=== PATIENT | female | born 1965 | race Caucasian/White ===

== ENCOUNTER 2019-06-19 18:29 | Emergency (ER) | payer OTHER ==
[2019-06-19] MEDS ORDERED: Sodium Chloride 0.9% 10 ML Syringe FLUSH PRN (18:40)
[2019-06-19] MEDS ORDERED: Sodium Chloride 0.9% 2.5 ML Syringe FLUSH PRN (18:40)
[2019-06-19] MEDS ORDERED: Sodium Chloride 0.9% 1,000 ML IV ONE (19:21)
[2019-06-19] MEDS ORDERED: Ondansetron 4 MG/2 ML SDV IVPUSH ONE (19:21)
[2019-06-19] MEDS ORDERED: Morphine 4 MG/ML Syringe IVPUSH ONE (19:22)
--- NOTE | 2019-06-19 19:27 | EDM.PDOC ---
ED HPI GENERAL MEDICAL PROBLEM - General Chief Complaint: Abdominal Pain Stated Complaint: ABDOMINAL PAIN Time Seen by Provider: 06/19/19 19:11 Source of Information: Reports: Patient History Limitations: Reports: No Limitations - History of Present Illness INITIAL COMMENTS - FREE TEXT/NARRATIVE: History of present illness: [Patient is 53-year-old female with a history of recently diagnosed periumbilical hernia presenting with abdominal pain throughout the day today. She endorses nausea, denies vomiting. States that she tried to take something to help her have a bowel movement, she does have a history of constipation as well. Denies fever, chest pain, shortness of breath, URI symptoms, known COVID- 19 exposure. Pain is aching in nature, in the periumbilical region, nonradiating. Has not had much appetite today. Pain is worsened by palpation.] Review of systems: As per history of present illness and below otherwise all systems reviewed and negative. Past medical history: As per history of present illness and as reviewed below otherwise noncontributory. Surgical history: As per history of present illness and as reviewed below otherwise noncontributory. Social history: No reported history of drug or alcohol abuse. Family history: As per history of present illness and as reviewed below otherwise noncontributory. Physical exam: General: Awake, alert, mild distress, A&O X3. HEENT: Atraumatic, normocephalic, pupils reactive, negative for conjunctival pallor or scleral icterus, mucous membranes moist, throat clear, neck supple, nontender, trachea midline. Lungs: Clear to auscultation, breath sounds equal bilaterally, chest nontender. Heart: RRR, normal S1S2, no JVD. Abdomen: Soft, nondistended, mildly diffusely tender. normoactive bowel sounds. Negative for masses or hepatosplenomegaly. Pelvis: Stable nontender. Genitourinary: Deferred. Rectal: Deferred. Extremities: Atraumatic, no edema, Neurovascular unremarkable. Neuro: Motor and sensory grossly intact throughout. Exam nonfocal. Diagnostics: [] Therapeutics: [] Impression: [] Plan: [] Definitive disposition and diagnosis as appropriate pending reevaluation and review of above. generalized Pain Score (Numeric/FACES): 8 - Related Data Allergies Allergy/AdvReac Type Severity Reaction Status Date / Time No Known Allergies Allergy Verified 06/19/19 19:22 Home Meds: Home Meds Gabapentin [Neurontin] 300 mg PO TID 01/07/18 [History] Lisinopril 10 mg PO DAILY 01/07/18 [History] Venlafaxine HCl [Venlafaxine HCl ER] 37.5 mg PO BID 01/12/18 [History] Lidocaine 5% [Lidoderm 5%] 1 patch TOP ASDIRECTED PRN 01/26/18 [History] traMADol HCl [Tramadol HCl ER] 100 mg PO BEDTIME 01/26/18 [History] Benzonatate 100 mg PO TID PRN #30 capsule 02/11/18 [Rx] traMADol [Ultram] 50 mg PO TID PRN #30 tab 02/11/18 [Rx] Past Medical History HEENT History: Reports: Other (See Below) Other HEENT History: wears glasses Cardiovascular History: Reports: Hypertension Respiratory History: Reports: None, PE Gastrointestinal History: Reports: Cholelithiasis Genitourinary History: Reports: None 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: Musculoskeletal History: Reports: Arthritis, Back Pain, Chronic Neurological History: Reports: None Psychiatric History: Reports: Depression Endocrine/Metabolic History: Reports: Other (See Below) Hematologic History: Reports: None Immunologic History: Reports: None Oncologic (Cancer) History: Reports: Breast Dermatologic History: Reports: None - Infectious Disease History Infectious Disease History: Reports: Chicken Pox - Past Surgical History Head Surgeries/Procedures: Reports: None GI Surgical History: Reports: Cholecystectomy Female Surgical History: Reports: Breast Biopsy, Tubal Ligation Musculoskeletal Surgical History: Reports: Other (See Below) Other Musculoskeletal Surgeries/Procedures:: rewlease of Plantar fascitis Oncologic Surgical History: Reports: Lumpectomy Other Oncologic Surgeries/Procedures: left breast- followed by radiation Dermatological Surgical History: Reports: None Social & Family History - Family History Family Medical History: Noncontributory Cardiac: Reports: Other (See Below) Other Cardiac Family History: on maternal side Respiratory: Reports: None - Caffeine Use Caffeine Use: Reports: Soda ED ROS GENERAL - Review of Systems Review Of Systems: Comprehensive ROS is negative, except as noted in HPI. ED EXAM, GI/ABD - Physical Exam Exam: See Below (see h and p) Course - Vital Signs Text/Narrative:: Patient is feeling better after getting some IV fluids and pain medicine. CT scan shows evidence of a fat-containing hernia but no bowel within the hernia. No other abnormality noted. No evidence for small bowel obstruction. She is a mildly elevated lactic acid, but no signs of infection otherwise. Her vital signs are stable. On reevaluation she is asymptomatic and appears comfortable. I encouraged her to follow-up with general surgery as previously instructed. At this time no indication for further work-up or admission. Return precautions also provided. Patient is agreeable with this plan, nontoxic, stable at the time of discharge. Last Recorded V/S: Last Vital Signs Temp 35.9 C L 06/19/19 21:12 Pulse 73 06/19/19 21:12 Resp 17 06/19/19 21:12 BP 150/80 H 06/19/19 21:12 Pulse Ox 100 06/19/19 21:12 - Orders/Labs/Meds Orders: Active Orders 24 hr Category Date Time Status Sodium Chloride 0.9% [Saline Flush] Med 06/19/19 18:40 Active 10 ml FLUSH ASDIRECTED PRN Sodium Chloride 0.9% [Saline Flush] Med 06/19/19 18:40 Active 2.5 ml FLUSH ASDIRECTED PRN Saline Lock Insert [OM.PC] Stat Oth 06/19/19 18:40 Ordered Medication Orders Sodium Chloride (Saline Flush) 10 ml FLUSH ASDIRECTED PRN PRN Reason: Keep Vein Open Last Admin: 06/19/19 21:06 Dose: 10 ml Sodium Chloride (Saline Flush) 2.5 ml FLUSH ASDIRECTED PRN PRN Reason: Keep Vein Open Last Admin: 06/19/19 21:06 Dose: 2.5 ml Labs: Laboratory Tests 06/19/19 06/19/19 06/19/19 Range/Units 19:21 19:21 19:21 WBC 12.02 H (4.0-11.0) K/uL RBC 4.88 (4.30-5.90) M/uL Hgb 14.6 (12.0-16.0) g/dL Hct 42.9 (36.0-46.0) % MCV 87.9 (80.0-98.0) fL MCH 29.9 (27.0-32.0) pg MCHC 34.0 (31.0-37.0) g/dL RDW Std Deviation 42.4 (28.0-62.0) fl RDW Coeff of Joel 13 (11.0-15.0) % Plt Count 218 (150-400) K/uL MPV 12.30 H (7.40-12.00) fL Neut % (Auto) 74.5 (48.0-80.0) % Lymph % (Auto) 16.6 (16.0-40.0) % Davie % (Auto) 7.5 (0.0-15.0) % Eos % (Auto) 1.2 (0.0-7.0) % Baso % (Auto) 0.2 (0.0-1.5) % Neut # (Auto) 9.0 H (1.4-5.7) K/uL Lymph # (Auto) 2.0 (0.6-2.4) K/uL Davie # (Auto) 0.9 H (0.0-0.8) K/uL Eos # (Auto) 0.2 (0.0-0.7) K/uL Baso # (Auto) 0.0 (0.0-0.1) K/uL Nucleated RBC % 0.0 /100WBC Nucleated RBCs # 0 K/uL Lactate (0.20-2.00) mmol/L Sodium 139 (136-145) mmol/L Potassium 3.6 (3.5-5.1) mmol/L Chloride 102 (98-107) mmol/L Carbon Dioxide 24.8 (21.0-32.0) mmol/L BUN 12 (7.0-18.0) mg/dL Creatinine 0.9 (0.6-1.0) mg/dL Est Cr Clr Drug Dosing 57.83 mL/min Estimated GFR (MDRD) > 60.0 ml/min Glucose 223 H (74-106) mg/dL Calcium 9.3 (8.5-10.1) mg/dL Total Bilirubin 0.4 (0.2-1.0) mg/dL AST 42 H (15-37) IU/L ALT 75 H (14-63) IU/L Alkaline Phosphatase 123 H (46-116) U/L Total Protein 8.3 H (6.4-8.2) g/dL Albumin 4.3 (3.4-5.0) g/dL Globulin 4.0 (2.6-4.0) g/dL Albumin/Globulin Ratio 1.1 (0.9-1.6) Lipase 74 (73-393) U/L HCG, Qual (NEG) Urine Color Urine Appearance Urine pH (5.0-8.0) Ur Specific Reyno (1.001-1.035) Urine Protein (NEGATIVE) mg/dL Urine Glucose (UA) (NEGATIVE) mg/dL Urine Ketones (NEGATIVE) mg/dL Urine Occult Blood (NEGATIVE) Urine Nitrite (NEGATIVE) Urine Bilirubin (NEGATIVE) Urine Urobilinogen (<2.0) EU/dL Ur Leukocyte Esterase (NEGATIVE) Urine RBC (0-2/HPF) Urine WBC (0-5/HPF) Ur Epithelial Cells (NONE-FEW) Amorphous Sediment (NEGATIVE) Urine Bacteria (NEGATIVE) Urine Mucus (NONE-MOD) 06/19/19 06/19/19 06/19/19 Range/Units 19:21 19:21 20:50 WBC (4.0-11.0) K/uL RBC (4.30-5.90) M/uL Hgb (12.0-16.0) g/dL Hct (36.0-46.0) % MCV (80.0-98.0) fL MCH (27.0-32.0) pg MCHC (31.0-37.0) g/dL RDW Std Deviation (28.0-62.0) fl RDW Coeff of Joel (11.0-15.0) % Plt Count (150-400) K/uL MPV (7.40-12.00) fL Neut % (Auto) (48.0-80.0) % Lymph % (Auto) (16.0-40.0) % Davie % (Auto) (0.0-15.0) % Eos % (Auto) (0.0-7.0) % Baso % (Auto) (0.0-1.5) % Neut # (Auto) (1.4-5.7) K/uL Lymph # (Auto) (0.6-2.4) K/uL Davie # (Auto) (0.0-0.8) K/uL Eos # (Auto) (0.0-0.7) K/uL Baso # (Auto) (0.0-0.1) K/uL Nucleated RBC % /100WBC Nucleated RBCs # K/uL Lactate 2.5 H* (0.20-2.00) mmol/L Sodium (136-145) mmol/L Potassium (3.5-5.1) mmol/L Chloride (98-107) mmol/L Carbon Dioxide (21.0-32.0) mmol/L BUN (7.0-18.0) mg/dL Creatinine (0.6-1.0) mg/dL Est Cr Clr Drug Dosing mL/min Estimated GFR (MDRD) ml/min Glucose (74-106) mg/dL Calcium (8.5-10.1) mg/dL Total Bilirubin (0.2-1.0) mg/dL AST (15-37) IU/L ALT (14-63) IU/L Alkaline Phosphatase (46-116) U/L Total Protein (6.4-8.2) g/dL Albumin (3.4-5.0) g/dL Globulin (2.6-4.0) g/dL Albumin/Globulin Ratio (0.9-1.6) Lipase (73-393) U/L HCG, Qual NEGATIVE (NEG) Urine Color YELLOW Urine Appearance CLEAR Urine pH 6.0 (5.0-8.0) Ur Specific Reyno 1.010 (1.001-1.035) Urine Protein NEGATIVE (NEGATIVE) mg/dL Urine Glucose (UA) 500 H (NEGATIVE) mg/dL Urine Ketones NEGATIVE (NEGATIVE) mg/dL Urine Occult Blood MODERATE H (NEGATIVE) Urine Nitrite NEGATIVE (NEGATIVE) Urine Bilirubin NEGATIVE (NEGATIVE) Urine Urobilinogen 0.2 (<2.0) EU/dL Ur Leukocyte Esterase NEGATIVE (NEGATIVE) Urine RBC 4-6 (0-2/HPF) Urine WBC 1-2 (0-5/HPF) Ur Epithelial Cells OCCASIONAL (NONE-FEW) Amorphous Sediment RARE (NEGATIVE) Urine Bacteria FEW (NEGATIVE) Urine Mucus RARE (NONE-MOD) Meds: Medications Generic Name Dose Route Start Last Admin Trade Name Freq PRN Reason Stop Dose Admin Sodium Chloride 10 ml 06/19/19 18:40 06/19/19 21:06 Saline Flush FLUSH 10 ml ASDIRECTED PRN Administration Keep Vein Open Sodium Chloride 2.5 ml 06/19/19 18:40 06/19/19 21:06 Saline Flush FLUSH 2.5 ml ASDIRECTED PRN Administration Keep Vein Open Discontinued Medications Generic Name Dose Route Start Last Admin Trade Name Cirilo PRN Reason Stop Dose Admin Sodium Chloride 1,000 mls @ 999 mls/hr 06/19/19 19:21 06/19/19 21:04 Normal Saline IV 06/19/19 20:21 999 mls/hr BOLUS ONE Administration Iopamidol 100 ml 06/19/19 21:02 06/19/19 21:03 Isovue-370 (76%) IVPUSH 06/19/19 21:03 100 ml ONETIME STA Administration Morphine Sulfate 4 mg 06/19/19 19:22 06/19/19 20:05 Morphine IVPUSH 06/19/19 19:23 4 mg ONETIME ONE Administration Ondansetron HCl 4 mg 06/19/19 19:21 06/19/19 20:05 Zofran IVPUSH 06/19/19 19:22 4 mg ONETIME ONE Administration Departure - Departure Time of Disposition: 21:34 Disposition: Home, Self-Care 01 Condition: Good Clinical Impression: Abdominal pain, Periumbilical hernia - Discharge Information Instructions: Hernia, Adult Referrals: Refugio Kaur MD [Primary Care Provider] - Forms: ED Department Discharge Additional Instructions: [facility] - General Surgery [address], [address] [place] [address] Follow-up with primary care doctor and surgery, take all medications as previously prescribed. Return to the ER with any new or worsening symptoms. The following information is given to patients seen in the emergency department who are being discharged to home. This information is to outline your options for follow-up care. We provide all patients seen in our emergency department with a follow-up referral. The need for follow-up, as well as the timing and circumstances, are variable depending upon the specifics of your emergency department visit. If you don't have a primary care physician on staff, we will provide you with a referral. We always advise you to contact your personal physician following an emergency department visit to inform them of the circumstance of the visit and for follow-up with them and/or the need for any referrals to a consulting specialist. The emergency department will also refer you to a specialist when appropriate. This referral assures that you have the opportunity for follow-up care with a specialist. All of these measure are taken in an effort to provide you with optimal care, which includes your follow-up. Under all circumstances we always encourage you to contact your private physician who remains a resource for coordinating your care. When calling for follow-up care, please make the office aware that this follow-up is from your recent emergency room visit. If for any reason you are refused follow-up, please contact the [facility] Emergency Department at and asked to speak to the emergency department charge nurse. Sepsis Event Note - Evaluation Sepsis Screening Result: No Definite Risk - Focused Exam Vital Signs: Vital Signs Temp Pulse Resp BP Pulse Ox 06/19/19 21:12 35.9 C L 73 17 150/80 H 100 06/19/19 19:20 36.2 C 98 20 191/118 H 97 Date Exam was Performed: 06/19/19 Time Exam was Performed: 21:30
[2019-06-19 20:14] LABS: BLOOD UREA NITROGEN,BUN 12 mg/dL (7.0-18.0); CARBON DIOXIDE,CO2 24.8 mmol/L (21.0-32.0); CHLORIDE,CL 102 mmol/L (98-107); GLUCOSE RANDOM 223 mg/dL (74-106); POTASSIUM,K 3.6 mmol/L (3.5-5.1); SODIUM,NA 139 mmol/L (136-145)
[2019-06-19] MEDS ORDERED: Iopamidol 755 Mg/ML 100 ML Bottle IVPUSH STA (21:02)
--- NOTE | 2019-06-19 21:13 | CT ---
CT abdomen and pelvis Technique: Multiple axial sections were obtained from above the dome of the diaphragm inferiorly through the pubic symphysis. Comparison: Previous CT abdomen and pelvis study of 06/02/19. Findings: Visualized lung bases show nothing acute. Fatty infiltration is seen throughout the liver. Spleen appears within normal limits. Adrenal glands show no nodule. Pancreas shows no discrete abnormality. Surgical clips are seen from prior cholecystectomy. Kidneys show symmetric contrast enhancement without hydronephrosis or mass. Aorta shows no aneurysm with mild atherosclerotic calcification. No retroperitoneal adenopathy or mesenteric abnormalities are noted. No pelvic mass or adenopathy is seen. No free fluid or inflammatory change is seen. No bowel dilatation is seen. Fat-containing hernia is identified slightly superior to the umbilicus as well as a smaller fat-containing umbilical hernia directly below this 1st hernia. There is no bowel seen to extend into these hernias. No additional abdominal wall hernia is seen. Bone window settings were reviewed which appear within normal limits for the patient's age. No acute osseous finding is seen. Impression: 1. No evidence of small bowel obstruction. No bowel is seen to extend into anterior fat-containing abdominal wall hernias as noted above. 2. Fatty infiltration within the liver. Nothing acute is appreciated. Diagnostic code #3 This report was dictated in MDT
== END 2019-06-19 22:07 | disposition home or self-care (01) ==
LOC: MW.ED 18:29
DX: K42.9 Umbilical hernia without obstruction or gangrene (principal); I10 Essential (primary) hypertension; M19.90 Unspecified osteoarthritis, unspecified site; F32.9 Major depressive disorder, single episode, unspecified; Z79.899 Other long term (current) drug therapy; Z86.711 Personal history of pulmonary embolism
CPT/HCPCS: 74177; 80053; 81001; 83605; 83690; 84703; 85025; 96374; 96375; 99284; J2270; J2405; J7030; Q9967; 99283

== ENCOUNTER 2019-07-04 07:40 | Day surgery (SDC) | payer OTHER ==
[~2019-07-04 07:40] MED LIST: Lactated Ringers 1,000 ML IV SCH; Sodium Chloride 0.9% 10 ML SDV IV PRN; Sodium Chloride 0.9% 10 ML Syringe FLUSH PRN; Sodium Chloride 0.9% 2.5 ML Syringe FLUSH PRN; ceFAZolin 2 GM in Premix Bag 1 BAG IV ONE
--- NOTE | 2019-07-04 08:25 | PCM.PREANE ---
Preanesthetic Assessment - Anesthesia/Transfusion/Family Hx Anesthesia History: Prior Anesthesia Without Reaction Family History of Anesthesia Reaction: No Transfusion History: No Prior Transfusion(s) Intubation History: Unknown - Review of Systems General: No Symptoms Pulmonary: No Symptoms Cardiovascular: No Symptoms Gastrointestinal: No Symptoms Neurological: No Symptoms Other: Reports: None - Physical Assessment Height: 5 ft 2 in Weight: 74.843 kg ASA Class: 3 Mental Status: Alert & Oriented x3 Airway Class: Mallampati = 1 Dentition: Reports: Normal Dentition Thyro-Mental Finger Breadths: 3 Mouth Opening Finger Breadths: 3 ROM/Head Extension: Full Lungs: Clear to Auscultation, Normal Respiratory Effort Cardiovascular: Regular Rate, Regular Rhythm - Allergies Allergies/Adverse Reactions: Allergies Allergy/AdvReac Type Severity Reaction Status Date / Time No Known Allergies Allergy Verified 06/29/19 11:07 - Blood Blood Available: No - Anesthesia Plan Pre-Op Medication Ordered: None - Acknowledgements Anesthesia Type Planned: General Anesthesia Pt an Appropriate Candidate for the Planned Anesthesia: Yes Alternatives and Risks of Anesthesia Discussed w Pt/Guardian: Yes Pt/Guardian Understands and Agrees with Anesthesia Plan: Yes PreAnesthesia Questionnaire HEENT History: Reports: Other (See Below) Other HEENT History: wears glasses Cardiovascular History: Reports: High Cholesterol, Hypertension Respiratory History: Reports: PE Other Respiratory History: norma PE 1 1/2 years ago after lap page Gastrointestinal History: Reports: Cholelithiasis Genitourinary History: Reports: None 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: Musculoskeletal History: Reports: Arthritis, Back Pain, Chronic Neurological History: Reports: None Psychiatric History: Reports: Depression Endocrine/Metabolic History: Reports: Diabetes, Type II, Obesity/BMI 30+ (BMI 30.2) Hematologic History: Reports: None Immunologic History: Reports: None Oncologic (Cancer) History: Reports: Breast Dermatologic History: Reports: None - Infectious Disease History Infectious Disease History: Reports: Chicken Pox - Past Surgical History Head Surgeries/Procedures: Reports: None HEENT Surgical History: Reports: None Cardiovascular Surgical History: Reports: None Respiratory Surgical History: Reports: None GI Surgical History: Reports: Cholecystectomy Female Surgical History: Reports: Breast Biopsy, Tubal Ligation Endocrine Surgical History: Reports: None Neurological Surgical History: Reports: None Musculoskeletal Surgical History: Reports: Other (See Below) Other Musculoskeletal Surgeries/Procedures:: release of Plantar fascitis Oncologic Surgical History: Reports: Lumpectomy Other Oncologic Surgeries/Procedures: left breast- followed by radiation Dermatological Surgical History: Reports: None - SUBSTANCE USE Smoking Status *Q: Never Smoker Recreational Drug Use History: No - HOME MEDS Home Medications: Home Meds Gabapentin [Neurontin] 600 mg PO TID 01/07/18 [History] Lisinopril 20 mg PO DAILY 01/07/18 [History] Venlafaxine HCl [Venlafaxine HCl ER] 37.5 mg PO BID 01/12/18 [History] Lidocaine 5% [Lidoderm 5%] 1 patch TOP ASDIRECTED PRN 01/26/18 [History] traMADol [Ultram] 50 mg PO TID PRN #30 tab 02/11/18 [Rx] Anastrozole [Arimidex] 1 mg PO DAILY 06/29/19 [History] Meloxicam 15 mg PO BEDTIME 06/29/19 [History] metFORMIN HCl [Metformin HCl] 500 mg PO DAILY 06/29/19 [History] - CURRENT (IN HOUSE) MEDS Current Meds: Current Medications Lactated Ringer's (Ringers, Lactated) 1,000 mls @ 125 mls/hr IV ASDIRECTED MARIBELL Sodium Chloride (Saline Flush) 10 ml FLUSH ASDIRECTED PRN PRN Reason: Keep Vein Open Sodium Chloride (Saline Flush) 2.5 ml FLUSH ASDIRECTED PRN PRN Reason: Keep Vein Open Sodium Chloride (Normal Saline) 10 ml IV ASDIRECTED PRN PRN Reason: IV Use Discontinued Medications Cefazolin Sodium/Dextrose 2 gm (/ Premix) 50 mls @ 100 mls/hr IV ONETIME ONE Stop: 06/28/19 12:40
[2019-07-04] MEDS ORDERED: fentaNYL 250 MCG/5 ML SDV ONE (08:32)
[2019-07-04] MEDS ORDERED: Midazolam 1 MG/ML 2 ML SDV ONE (08:32)
[2019-07-04] MEDS ORDERED: Propofol 200 MG/20 ML SDV ONE (08:32)
[2019-07-04] MEDS ORDERED: Rocuronium 100 MG/10 ML Syringe ONE (08:34)
[2019-07-04] MEDS ORDERED: Lidocaine 2% 5 ML SDV ONE (08:34)
[2019-07-04] MEDS ORDERED: Octyl 2-Cyanoacrylate 1 Tube ONE (09:36)
[2019-07-04] MEDS ORDERED: Bupivacaine 0.5% 30 ML SDV ONE (09:36)
[2019-07-04] MEDS ORDERED: Sugammadex Sodium 200 MG/2 ML VIAL ONE (09:43)
[2019-07-04] MEDS ORDERED: ceFAZolin/Dextrose,Iso-Osmotic 2 GM/50 ML Duplex Bag IV ONE (10:08)
[2019-07-04] MEDS ORDERED: Ondansetron 4 MG/2 ML SDV IVPUSH PRN (10:26)
[2019-07-04] MEDS ORDERED: ceFAZolin 1 GM Vial ONE (10:27)
[2019-07-04] MEDS ORDERED: Ketorolac 30 MG/ML SDV ONE (10:58)
[2019-07-04] MEDS ORDERED: Naloxone 0.4 MG/ML Syringe ONE (11:12)
--- NOTE | 2019-07-04 11:20 | PCM.OPNOTE ---
- General Post-Op/Procedure Note Date of Surgery/Procedure: 07/04/19 Operative Procedure(s): Incisional hernia repair Findings: 4 x 2 cm supraumbilical incisional hernia containing omentum Pre Op Diagnosis: Incisional hernia Post-Op Diagnosis: same Anesthesia Technique: General ET Tube Primary Surgeon: Suyapa Gonzales Fluid Replacement, Intraop: 1,200 EBL in mLs: 10 Condition: Good
[2019-07-04] MEDS: fentaNYL 100 MCG/2 ML SDV IVPUSH PRN ×2 (11:38→11:43)
[2019-07-04] MEDS ORDERED: Acetaminophen/oxyCODONE 325-5 MG Tab PO PRN (12:15)
[2019-07-04] MEDS ORDERED: Cyclobenzaprine 5 MG Tab PO PRN (12:16)
[2019-07-04] MEDS ORDERED: HYDROmorphone 1 MG/ML Syringe IVPUSH PRN (12:21)
[2019-07-04] MEDS ORDERED: HYDROmorphone 2 MG/ML Syringe ONE (12:27)
--- NOTE | 2019-07-04 12:42 | PCM.POSTAN ---
POST ANESTHESIA ASSESSMENT - MENTAL STATUS Mental Status: Alert, Oriented - VITAL SIGNS Vital Signs: Last Vital Signs Temp 36.8 C 07/04/19 11:18 Pulse 70 07/04/19 11:55 Resp 16 07/04/19 11:55 BP 136/78 07/04/19 11:55 Pulse Ox 96 07/04/19 11:55 - RESPIRATORY Respiratory Status: Respiratory Rate WNL, Airway Patent, O2 Saturation Stable - CARDIOVASCULAR CV Status: Pulse Rate WNL, Blood Pressure Stable - GASTROINTESTINAL GI Status: No Symptoms - PAIN Pain Score: 4 - POST OP HYDRATION Hydration Status: Adequate & Stable - OBSERVATIONS Free Text/Narrative:: No anesthesia problems.
--- NOTE | 2019-07-04 14:41 | PCM48HPAN ---
Post Anesthesia Note - EVALUATION WITHIN 48HRS OF ANESTHETIC Vital Signs in Normal Range: Yes Patient Participated in Evaluation: Yes Respiratory Function Stable: Yes Airway Patent: Yes Cardiovascular Function Stable: Yes Hydration Status Stable: Yes Pain Control Satisfactory: Yes Nausea and Vomiting Control Satisfactory: Yes Mental Status Recovered: Yes Vital Signs: Last Vital Signs Temp 36.0 C L 07/04/19 12:05 Pulse 71 07/04/19 14:00 Resp 16 07/04/19 14:00 BP 140/85 07/04/19 14:00 Pulse Ox 94 L 07/04/19 14:00 - COMMENTS/OBSERVATIONS Free Text/Narrative:: No anesthesia complications or concerns noted.
--- NOTE | 2019-07-04 22:33 | OR ---
SURGEON: SUYAPA GONZALES MD DATE OF PROCEDURE: 07/04/2019 PREOPERATIVE DIAGNOSIS: Incisional ventral hernia. POSTOPERATIVE DIAGNOSIS: Incisional ventral hernia. PROCEDURE PERFORMED: Repair of incisional hernia with mesh. PRIMARY SURGEON: Suyapa Gonzales MD ANESTHESIA: General endotracheal anesthesia. FLUIDS: 1200 mL of crystalloid. ESTIMATED BLOOD LOSS: 10 mL. FINDINGS: A 4 x 2 cm supraumbilical incisional hernia containing omentum. COMPLICATIONS: None. INDICATIONS: The patient is a 53-year-old female who presented to my clinic with a periumbilical pain. CT scan showed a supraumbilical hernia containing omentum. This appeared to be two hernias on CT scan. The patient became more symptomatic over time and the decision was made to repair this urgently. The patient and I discussed the need for mesh. The patient bathed with Hibiclens the night before the procedure. In clinic, we discussed the procedure; expected perioperative course; and risks including bleeding, infection, or damage to surrounding structures. She verbalized understanding and wishes to proceed. PROCEDURE IN DETAIL: The patient was brought into the OR and placed on the OR table in supine position. A time-out was completed verifying the patient's name, age, date of , allergies, and procedure to be performed. General endotracheal anesthesia was induced. Preoperative antibiotics were given. The abdomen was prepped and draped in usual standard fashion. I anesthetized the supraumbilical midline as well as around the umbilicus with 0.5% Marcaine plain. A 15 blade was used to make an incision along the supraumbilical midline and then carried just right and lateral to the umbilicus. Cautery was then used to dissect down to the level of subcutaneous fat. Just above the umbilicus, I noted a large hernia sac. Using Metzenbaum scissors, I dissected this free from the surrounding tissue down to the level of fascia. The hernia sac itself was much bigger than the fascial defect. Once I had dissected it free from the surrounding tissues, I grasped the top of it with hemostats and opened it with the Metzenbaum scissors. The hernia sac contained omentum, which was easily reduced back into the abdomen. The hernia sac was then transected off the healthy fascia using electrocautery making sure to carefully protect the intraabdominal contents. It was passed off the field and sent to pathology, labeled as hernia sac. I measured my fascial defect. It measured 4 cm x 2 cm in size. I swept away any intraabdominal attachments of the omentum to the surrounding fascia. I did not palpate any further hernia defects. Just right and lateral to the fascial defect, was a small band of tissue, which was cut. Likely, this was what gave the appearance of two hernias on the preoperative CT scan. A Bard Ventralex hernia patch measuring 6.5 cm in diameter was bathed in a normal saline-Ancef solution and brought into the field. I changed my gloves before handling the mesh. It was placed intra-abdominally as an underlay. I sutured this circumferentially around the healthy fascia using interrupted 0 Ethibond sutures. When I was done placing the sutures, I lifted the mesh and inspected underneath. There did not appear to be any damage or involvement of the underlying structures. The mesh was placed back into place and tied down. The wound was then irrigated with a normal saline-Ancef solution, which was suctioned out. The fascial defect was then closed over the top of the mesh with interrupted 0 Ethibond sutures. I then again irrigated the wound. I inspected it for hemostasis. Hemostasis appeared to be achieved. I injected the fascia with 0.5% Marcaine plain. I then closed the wound with multiple layers of interrupted 3-0 Vicryl sutures, bringing the subcutaneous soft tissues down into the space created by the hernia sac. I then placed subcuticular interrupted 3-0 Vicryl sutures to bring the skin together. The skin was then closed with a running 4-0 Monocryl stitch. Dermabond and sterile dressings were applied. All counts were complete and correct at the end of the case. Patient was extubated and taken to PACU. She tolerated the procedure with no acute complications. VU / HAROON /[id number] EMERSON
== END 2019-07-04 14:45 | disposition home or self-care (01) ==
LOC: MW.SDS 07:40
PROVIDERS: ATTEND Surgery
DX: K43.2 Incisional hernia without obstruction or gangrene (principal); E78.00 Pure hypercholesterolemia, unspecified; I10 Essential (primary) hypertension; E11.9 Type 2 diabetes mellitus without complications; E78.5 Hyperlipidemia, unspecified; E66.9 Obesity, unspecified; M62.08 Separation of muscle (nontraumatic), other site; F32.9 Major depressive disorder, single episode, unspecified; Z68.30 Body mass index [BMI] 30.0-30.9, adult; Z79.899 Other long term (current) drug therapy; Z79.84 Long term (current) use of oral hypoglycemic drugs
CPT/HCPCS: 49560; 49568; 82962; 88302; A9270; C1781; J0690; J1170; J1885; J2001; J2250; J2704; J3010; J3490; J7120; 00752

== ENCOUNTER 2020-05-02 13:34 | Emergency (ER) | payer MEDICARE ==
[2020-05-02] MEDS ORDERED: Sodium Chloride 0.9% 1,000 ML IV ONE (13:52)
--- NOTE | 2020-05-02 14:05 | EDM.PDOC ---
ED HPI GENERAL MEDICAL PROBLEM - General Chief Complaint: Diabetic Complaint Stated Complaint: HIGH BLOOD SUGAR Time Seen by Provider: 05/02/20 13:50 Source of Information: Reports: Patient History Limitations: Reports: No Limitations - History of Present Illness INITIAL COMMENTS - FREE TEXT/NARRATIVE: HISTORY AND PHYSICAL: History of present illness: Patient is a 54 year old female who presents to the ED with c/o elevated blood sugars. States she has a history of type II DM and has been taking Metformin 500mg BID over the past 6 years (since being diagnosed). Typically her blood sugars run 250-300, but last evening and this morning her blood sugars were 350- 400. She had 2 slices of bread and 20 oz of juice just [employer] (doesn't follow a diabetic diet). Concerned she needs better medication management as she has had a mild headache, increased thrist and increased blood sugar. Last saw her PCP about 6-8 months ago. Patient denies any fever, chills, change in vision, syncope or near syncope. Denies any chest pain, back pain, shortness of breath or cough. Denies any abdominal pain, nausea, vomiting, diarrhea, constipation or dysuria. Has not noted any blood in urine or stool. Patient has been eating and drinking appropriately. Review of systems: As per history of present illness and below otherwise all systems reviewed and negative. Past medical history: As per history of present illness and as reviewed below otherwise noncontributory. Surgical history: As per history of present illness and as reviewed below otherwise noncontributory. Social history: See social history for further information Family history: As per history of present illness and as reviewed below otherwise noncontributory. Physical exam: General: Well developed and well nourished 54 year old female. Alert and orientated x 3. Nontoxic in appearance and in no acute distress. Vital signs are stable and have been reviewed by me. Nursing notes were reviewed. HEENT: Atraumatic, normocephalic, pupils equal and reactive bilaterally, negative for conjunctival pallor or scleral icterus, mucous membranes moist, TMs normal bilaterally, throat clear, neck supple, nontender, trachea midline. No drooling or trismus noted. No meningeal signs. No hot potato voice noted. Lungs: Clear to auscultation bilaterally. No wheezes, rales, or rhonchi. Chest nontender. Normal work of breathing, no accessory muscles used. Heart: S1S2, regular rate and rhythm without overt murmur, gallops, or rubs. No JVD. No peripheral edema Abdomen: Soft, nondistended, nontender. Normoactive bowel sounds. Negative for masses or costovertebral tenderness. Skin: Intact, warm, dry. No lesions or rashes noted. Hematologic: No petechiae or purpra. Mucosa appropriate color and normal nail bed color and refill. Extremities: Atraumatic, moves all extremities per self without difficulty or deficits, negative for cords or calf pain. Neurovascular unremarkable. Neuro: Awake, alert, oriented. Cranial nerves II through XII unremarkable. Cerebellum unremarkable. Motor and sensory unremarkable throughout. Exam nonfocal. Psychiatric: Mood and affect are appropriate. Normal thought process. Answering questions appropriately. Notes: *This patient was seen and evaluated during the 2019 SARS-CoV-2 novel coronavirus pandemic period. Community viral transmission is ongoing at time of this encounter and the emergency department is operating under pandemic response procedures. Patient's physical exam is within normal limits. Did give her 10 units of insulin subcut with IV fluids. Sugar was rechecked and is below 250. After retalking with patient it does sound like she has increased sugars/carb intake which is not helping her blood sugars. We will increase her Metformin although I feel her primary care will likely add additional medication and/or discuss insulin. Encouraged her to make an appointment today for follow-up within the next few days. I have talked with the patient about today's findings, in addition to providing specific details for plan of care. Reassessment at the time of disposition demonstrates that the patient is in no acute distress. The patient is stable for discharge, counseling was provided and we discussed in great detail signs and symptoms that would prompt them to return to the Emergency Department. Medication, follow up and supportive care measures were reviewed and discussed. Voices understanding and is agreeable to plan of care. Denies any further questions or concerns at this time. Diagnostics: CBC, CMP, [employer]A [employer]: IV fluids, Insulin Prescription: Metformin Impression: Hyperglycemia Plan: 1. You were evaluated today on an emergent basis. Increase your Metformin to 1000mg twice daily until you follow up with your primary care provider. Your Hemaglobin A1C was 9.6 (previously was 6.1). This means your blood sugars are not controlled well with your current regiment. Your primary care provider may add additional medications or consider insulin (we wont start this in the ED today). Please monitor the foods you are eating, cut back on sugars and carbs. 2. You can alternate Tylenol and ibuprofen as needed for pain and fever management. 3. We encourage you to follow up with your primary care provider in the next few days for re-evaluation and further care/management. 4. If your symptoms should worsen, new symptoms develop or any of the signs and symptoms we discussed should arise please return to the emergency room or call 911 (if needed). Definitive disposition and diagnosis as appropriate pending reevaluation and review of above. Headache Pain Score (Numeric/FACES): 8 - Related Data Allergies Allergy/AdvReac Type Severity Reaction Status Date / Time No Known Allergies Allergy Verified 05/02/20 13:42 Home Meds: Home Meds Gabapentin [Neurontin] 600 mg PO TID 01/07/18 [History] Lisinopril 20 mg PO DAILY 01/07/18 [History] Venlafaxine HCl [Venlafaxine HCl ER] 37.5 mg PO BID 01/12/18 [History] Lidocaine 5% [Lidoderm 5%] 1 patch TOP ASDIRECTED PRN 01/26/18 [History] traMADol [Ultram] 50 mg PO TID PRN #30 tab 02/11/18 [Rx] Anastrozole [Arimidex] 1 mg PO DAILY 06/29/19 [History] Meloxicam 15 mg PO BEDTIME 06/29/19 [History] metFORMIN HCl [Metformin HCl] 500 mg PO DAILY 06/29/19 [History] metFORMIN HCl [Metformin HCl] 1,000 mg PO BID #60 tablet 05/02/20 [Rx] Past Medical History HEENT History: Reports: Other (See Below) Other HEENT History: wears glasses Cardiovascular History: Reports: High Cholesterol, Hypertension Respiratory History: Reports: PE Other Respiratory History: norma PE 1 1/2 years ago after lap page Gastrointestinal History: Reports: Cholelithiasis Genitourinary History: Reports: None [employer] History: Reports: Musculoskeletal History: Reports: Arthritis, Back Pain, Chronic Neurological History: Reports: None Psychiatric History: Reports: Depression Endocrine/Metabolic History: Reports: Diabetes, Type II, Obesity/BMI 30+ Hematologic History: Reports: None Immunologic History: Reports: None Oncologic (Cancer) History: Reports: Breast Dermatologic History: Reports: None - Infectious Disease History Infectious Disease History: Reports: Chicken Pox - Past Surgical History Head Surgeries/Procedures: Reports: None HEENT Surgical History: Reports: None Cardiovascular Surgical History: Reports: None Respiratory Surgical History: Reports: None GI Surgical History: Reports: Cholecystectomy Female Surgical History: Reports: Breast Biopsy, Tubal Ligation Endocrine Surgical History: Reports: None Neurological Surgical History: Reports: None Musculoskeletal Surgical History: Reports: Other (See Below) Other Musculoskeletal Surgeries/Procedures:: release of Plantar fascitis Oncologic Surgical History: Reports: Lumpectomy Other Oncologic Surgeries/Procedures: left breast- followed by radiation Dermatological Surgical History: Reports: None Social & Family History - Family History Family Medical History: No Pertinent Family History Cardiac: Reports: Other (See Below) Other Cardiac Family History: on maternal side Respiratory: Reports: None - Tobacco Use Tobacco Use Status *Q: Never Tobacco User - Caffeine Use Caffeine Use: Reports: Soda - Recreational Drug Use Recreational Drug Use: No ED ROS GENERAL - Review of Systems Review Of Systems: Comprehensive ROS is negative, except as noted in HPI. ED EXAM GENERAL NO PERIP PULSE - Physical Exam Exam: See Below (See dictation) Course - Vital Signs Last Recorded V/S: Last Vital Signs Temp 96.5 F L 05/02/20 13:43 Pulse 72 05/02/20 15:12 Resp 14 05/02/20 15:12 BP 178/89 H 05/02/20 15:12 Pulse Ox 97 05/02/20 15:12 - Orders/Labs/Meds Orders: Active Orders 24 hr Category Date Time Status Blood Glucose Check, Bedside [RC] ONETIME Care 05/02/20 13:52 Active Blood Glucose Check, Bedside [RC] ONETIME Care 05/02/20 14:18 Active Dextrose 50% in Water Med 05/02/20 14:18 Active 50 ml IV ASDIRECTED PRN Glucagon,Human Recombinant [GlucaGen] Med 05/02/20 14:18 Active 1 mg IM ASDIRECTED PRN Medication Orders Dextrose/Water (50% Dextrose In Water 50 Ml Syringe) 50 ml IV ASDIRECTED PRN PRN Reason: Hypoglycemia Glucagon (Glucagon,Human Recombinant 1 Mg Vial) 1 mg IM ASDIRECTED PRN PRN Reason: Hypoglycemia Labs: Laboratory Tests 05/02/20 05/02/2021 Range/Units 13:47 13:53 14:02 WBC 9.93 (4.0-11.0) K/uL RBC 5.23 (4.30-5.90) M/uL Hgb 15.8 (12.0-16.0) g/dL Hct 45.9 (36.0-46.0) % MCV 87.8 (80.0-98.0) fL MCH 30.2 (27.0-32.0) pg MCHC 34.4 (31.0-37.0) g/dL RDW Std Deviation 40.3 (28.0-62.0) fl RDW Coeff of Joel 13 (11.0-15.0) % Plt Count 231 (150-400) K/uL MPV 12.70 H (7.40-12.00) fL Neut % (Auto) 71.5 (48.0-80.0) % Lymph % (Auto) 21.3 (16.0-40.0) % [place] % (Auto) 4.9 (0.0-15.0) % Eos % (Auto) 1.8 (0.0-7.0) % Baso % (Auto) 0.5 (0.0-1.5) % Neut # (Auto) 7.1 H (1.4-5.7) K/uL Lymph # (Auto) 2.1 (0.6-2.4) K/uL [place] # (Auto) 0.5 (0.0-0.8) K/uL Eos # (Auto) 0.2 (0.0-0.7) K/uL Baso # (Auto) 0.1 (0.0-0.1) K/uL Nucleated RBC % 0.0 /100WBC Nucleated RBCs # 0 K/uL Sodium (136-145) mmol/L Potassium (3.5-5.1) mmol/L Chloride (98-107) mmol/L Carbon Dioxide (21.0-32.0) mmol/L BUN (7.0-18.0) mg/dL Creatinine (0.6-1.0) mg/dL Est Cr Clr Drug Dosing mL/min Estimated GFR (MDRD) ml/min Glucose (74-106) mg/dL POC Glucose 369 H (60-110) mg/dL Hemoglobin A1c (4.5 - 6.2) % Calcium (8.5-10.1) mg/dL Total Bilirubin (0.2-1.0) mg/dL AST (15-37) IU/L ALT (14-63) IU/L Alkaline Phosphatase (46-116) U/L Total Protein (6.4-8.2) g/dL Albumin (3.4-5.0) g/dL Globulin (2.6-4.0) g/dL Albumin/Globulin Ratio (0.9-1.6) Urine Color YELLOW Urine Appearance CLEAR Urine pH 5.5 (5.0-8.0) Ur Specific [place] 1.015 (1.001-1.035) Urine Protein NEGATIVE (NEGATIVE) mg/dL Urine Glucose (UA) >=1000 (NEGATIVE) mg/dL Urine Ketones NEGATIVE (NEGATIVE) mg/dL Urine Occult Blood SMALL H (NEGATIVE) Urine Nitrite NEGATIVE (NEGATIVE) Urine Bilirubin NEGATIVE (NEGATIVE) Urine Urobilinogen 0.2 (<2.0) EU/dL Ur Leukocyte Esterase NEGATIVE (NEGATIVE) Urine RBC 0-2 (0-2/HPF) Urine WBC 0-1 (0-5/HPF) Ur Epithelial Cells RARE (NONE-FEW) Urine Bacteria RARE (NEGATIVE) 05/02/20 05/02/20 05/02/20 Range/Units 14:02 14:02 14:38 WBC (4.0-11.0) K/uL RBC (4.30-5.90) M/uL Hgb (12.0-16.0) g/dL Hct (36.0-46.0) % MCV (80.0-98.0) fL MCH (27.0-32.0) pg MCHC (31.0-37.0) g/dL RDW Std Deviation (28.0-62.0) fl RDW Coeff of Joel (11.0-15.0) % Plt Count (150-400) K/uL MPV (7.40-12.00) fL Neut % (Auto) (48.0-80.0) % Lymph % (Auto) (16.0-40.0) % [place] % (Auto) (0.0-15.0) % Eos % (Auto) (0.0-7.0) % Baso % (Auto) (0.0-1.5) % Neut # (Auto) (1.4-5.7) K/uL Lymph # (Auto) (0.6-2.4) K/uL [place] # (Auto) (0.0-0.8) K/uL Eos # (Auto) (0.0-0.7) K/uL Baso # (Auto) (0.0-0.1) K/uL Nucleated RBC % /100WBC Nucleated RBCs # K/uL Sodium 133 L (136-145) mmol/L Potassium 4.0 (3.5-5.1) mmol/L Chloride 98 (98-107) mmol/L Carbon Dioxide 26.7 (21.0-32.0) mmol/L BUN 18 (7.0-18.0) mg/dL Creatinine 0.9 (0.6-1.0) mg/dL Est Cr Clr Drug Dosing 57.17 mL/min Estimated GFR (MDRD) > 60.0 ml/min Glucose 389 H (74-106) mg/dL POC Glucose 283 H (60-110) mg/dL Hemoglobin A1c 9.6 H (4.5 - 6.2) % Calcium 9.4 (8.5-10.1) mg/dL Total Bilirubin 0.3 (0.2-1.0) mg/dL AST 21 (15-37) IU/L ALT 54 (14-63) IU/L Alkaline Phosphatase 178 H (46-116) U/L Total Protein 8.3 H (6.4-8.2) g/dL Albumin 4.0 (3.4-5.0) g/dL Globulin 4.3 H (2.6-4.0) g/dL Albumin/Globulin Ratio 0.9 (0.9-1.6) Urine Color Urine Appearance Urine pH (5.0-8.0) Ur Specific [place] (1.001-1.035) Urine Protein (NEGATIVE) mg/dL Urine Glucose (UA) (NEGATIVE) mg/dL Urine Ketones (NEGATIVE) mg/dL Urine Occult Blood (NEGATIVE) Urine Nitrite (NEGATIVE) Urine Bilirubin (NEGATIVE) Urine Urobilinogen (<2.0) EU/dL Ur Leukocyte Esterase (NEGATIVE) Urine RBC (0-2/HPF) Urine WBC (0-5/HPF) Ur Epithelial Cells (NONE-FEW) Urine Bacteria (NEGATIVE) 05/02/20 Range/Units 15:16 WBC (4.0-11.0) K/uL RBC (4.30-5.90) M/uL Hgb (12.0-16.0) g/dL Hct (36.0-46.0) % MCV (80.0-98.0) fL MCH (27.0-32.0) pg MCHC (31.0-37.0) g/dL RDW Std Deviation (28.0-62.0) fl RDW Coeff of Joel (11.0-15.0) % Plt Count (150-400) K/uL MPV (7.40-12.00) fL Neut % (Auto) (48.0-80.0) % Lymph % (Auto) (16.0-40.0) % [place] % (Auto) (0.0-15.0) % Eos % (Auto) (0.0-7.0) % Baso % (Auto) (0.0-1.5) % Neut # (Auto) (1.4-5.7) K/uL Lymph # (Auto) (0.6-2.4) K/uL [place] # (Auto) (0.0-0.8) K/uL Eos # (Auto) (0.0-0.7) K/uL Baso # (Auto) (0.0-0.1) K/uL Nucleated RBC % /100WBC Nucleated RBCs # K/uL Sodium (136-145) mmol/L Potassium (3.5-5.1) mmol/L Chloride (98-107) mmol/L Carbon Dioxide (21.0-32.0) mmol/L BUN (7.0-18.0) mg/dL Creatinine (0.6-1.0) mg/dL Est Cr Clr Drug Dosing mL/min Estimated GFR (MDRD) ml/min Glucose (74-106) mg/dL POC Glucose 257 H (60-110) mg/dL Hemoglobin A1c (4.5 - 6.2) % Calcium (8.5-10.1) mg/dL Total Bilirubin (0.2-1.0) mg/dL AST (15-37) IU/L ALT (14-63) IU/L Alkaline Phosphatase (46-116) U/L Total Protein (6.4-8.2) g/dL Albumin (3.4-5.0) g/dL Globulin (2.6-4.0) g/dL Albumin/Globulin Ratio (0.9-1.6) Urine Color Urine Appearance Urine pH (5.0-8.0) Ur Specific [place] (1.001-1.035) Urine Protein (NEGATIVE) mg/dL Urine Glucose (UA) (NEGATIVE) mg/dL Urine Ketones (NEGATIVE) mg/dL Urine Occult Blood (NEGATIVE) Urine Nitrite (NEGATIVE) Urine Bilirubin (NEGATIVE) Urine Urobilinogen (<2.0) EU/dL Ur Leukocyte Esterase (NEGATIVE) Urine RBC (0-2/HPF) Urine WBC (0-5/HPF) Ur Epithelial Cells (NONE-FEW) Urine Bacteria (NEGATIVE) Meds: Medications Generic Name Dose Route Start Last Admin Trade Name Freq PRN Reason Stop Dose Admin Dextrose/Water 50 ml 05/02/20 14:18 50% Dextrose In Water 50 Ml Syringe IV ASDIRECTED PRN Hypoglycemia Glucagon 1 mg 05/02/20 14:18 Glucagon,Human Recombinant 1 Mg Vial IM ASDIRECTED PRN Hypoglycemia Discontinued Medications Generic Name Dose Route Start Last Admin Trade Name Freq PRN Reason Stop Dose Admin Sodium Chloride 1,000 mls @ 999 mls/hr 05/02/20 13:52 05/02/20 14:04 Normal Saline IV 05/02/20 14:52 999 mls/hr STAT ONE Administration Insulin Human Regular 10 unit 05/02/20 14:18 05/02/20 14:39 Insulin Regular, Human 100 Units/Ml 10 Ml Vial SUBCUT 05/02/20 14:19 10 units ONETIME ONE Administration Protocol Departure - Departure Time of Disposition: 14:56 Disposition: Home, Self-Care 01 Clinical Impression: Hyperglycemia - Discharge Information Prescriptions: metFORMIN HCl [Metformin HCl] 1,000 mg PO BID #60 tablet Instructions: Type 2 Diabetes Mellitus, Diagnosis, Adult, [id number] Referrals: Refugio Kaur MD [Primary Care Provider] - Forms: ED Department Discharge Additional Instructions: The following information is given to patients seen in the emergency department who are being discharged to home. This information is to outline your options for follow-up care. We provide all patients seen in our emergency department with a follow-up referral. The need for follow-up, as well as the timing and circumstances, are variable depending upon the specifics of your emergency department visit. If you don't have a primary care physician on staff, we will provide you with a referral. We always advise you to contact your personal physician following an emergency department visit to inform them of the circumstance of the visit and for follow-up with them and/or the need for any referrals to a consulting specialist. The emergency department will also refer you to a specialist when appropriate. This referral assures that you have the opportunity for follow-up care with a specialist. All of these measure are taken in an effort to provide you with optimal care, which includes your follow-up. Under all circumstances we always encourage you to contact your private physician who remains a resource for coordinating your care. When calling for follow-up care, please make the office aware that this follow-up is from your recent emergency room visit. If for any reason you are refused follow-up, please contact the [facility] Emergency Department at and asked to speak to the emergency department charge nurse. [facility] [address] [place] [address] [address] Thank you for choosing the [facility] emergency department in [place] for your medical needs today. It was a pleasure caring for you. Today you were seen in the emergency department for elevated blood glucose. 1. You were evaluated today on an emergent basis. Increase your Metformin to 1000mg twice daily until you follow up with your primary care provider. Your Hemaglobin A1C was 9.6 (previously was 6.1). This means your blood sugars are not controlled well with your current regiment. Your primary care provider may add additional medications or consider insulin (we wont start this in the ED today). Please monitor the foods you are eating, cut back on sugars and carbs. 2. You can alternate Tylenol and ibuprofen as needed for pain and fever management. 3. We encourage you to follow up with your primary care provider in the next few days for re-evaluation and further care/management. 4. If your symptoms should worsen, new symptoms develop or any of the signs and symptoms we discussed should arise please return to the emergency room or call 911 (if needed). Sepsis Event Note (ED) - Evaluation Sepsis Screening Result: No Definite Risk - Focused Exam Vital Signs: Vital Signs Temp Pulse Resp BP Pulse Ox 05/02/20 15:12 72 14 178/89 H 97 05/02/20 13:43 96.5 F L 99 16 171/94 H 96 - My Orders Last 24 Hours: My Active Orders 05/02/20 13:52 Blood Glucose Check, Bedside [RC] ONETIME 05/02/20 14:18 Blood Glucose Check, Bedside [RC] ONETIME Dextrose 50% in Water 50 ml IV ASDIRECTED PRN Glucagon,Human Recombinant [GlucaGen] 1 mg IM ASDIRECTED PRN - Assessment/Plan Last 24 Hours: My Active Orders 05/02/20 13:52 Blood Glucose Check, Bedside [RC] ONETIME 05/02/20 14:18 Blood Glucose Check, Bedside [RC] ONETIME Dextrose 50% in Water 50 ml IV ASDIRECTED PRN Glucagon,Human Recombinant [GlucaGen] 1 mg IM ASDIRECTED PRN
[2020-05-02] MEDS ORDERED: Insulin Regular, Human 100 Units/ML 10 ML Vial SUBCUT ONE (14:18)
[2020-05-02] MEDS ORDERED: Glucagon,Human Recombinant 1 MG Vial IM PRN (14:18)
[2020-05-02] MEDS ORDERED: 50% Dextrose in Water 50 ML Syringe IV PRN (14:18)
[2020-05-02 14:22] LABS: HEMOGLOBIN A1C 9.6 %
[2020-05-02 14:35] LABS: BLOOD UREA NITROGEN,BUN 18 mg/dL (7.0-18.0); CARBON DIOXIDE,CO2 26.7 mmol/L (21.0-32.0); CHLORIDE,CL 98 mmol/L (98-107); GLUCOSE RANDOM 389 mg/dL (74-106); SODIUM,NA 133 mmol/L (136-145)
== END 2020-05-02 15:36 | disposition home or self-care (01) ==
LOC: MW.ED 13:34
DX: E11.65 Type 2 diabetes mellitus with hyperglycemia (principal); I10 Essential (primary) hypertension; E66.9 Obesity, unspecified; Z68.29 Body mass index [BMI] 29.0-29.9, adult; Z79.84 Long term (current) use of oral hypoglycemic drugs; Z79.899 Other long term (current) drug therapy
CPT/HCPCS: 36415; 80053; 81001; 82962; 83036; 85025; 99284; J7030; J1815-GY

== ENCOUNTER 2020-08-22 06:53 | Day surgery (SDC) | payer MEDICARE, OTHER ==
[2020-08-22] MEDS ORDERED: Scopolamine 1.5 MG Transdermal Patch ONE (07:07)
[2020-08-22] MEDS ORDERED: Ondansetron 4 MG/2 ML SDV ONE (07:20)
[2020-08-22] MEDS ORDERED: Lidocaine 2% 5 ML SDV ONE (07:20)
[2020-08-22] MEDS ORDERED: Glycopyrrolate 0.2 MG/ML SDV ONE (07:20)
[2020-08-22] MEDS ORDERED: Propofol 200 MG/20 ML SDV ONE (07:20)
[2020-08-22] MEDS ORDERED: fentaNYL 100 MCG/2 ML SDV ONE (07:20)
[2020-08-22] MEDS ORDERED: Midazolam 1 MG/ML 2 ML SDV ONE (07:20)
[2020-08-22] MEDS ORDERED: Ketorolac 30 MG/ML SDV ONE (07:20)
[2020-08-22] MEDS ORDERED: Lidocaine 1% 20 ML MDV ONE (07:22)
--- NOTE | 2020-08-22 07:32 | PCM.PREANE ---
Preanesthetic Assessment - Anesthesia/Transfusion/Family Hx Anesthesia History: Prior Anesthesia Without Reaction Transfusion History: No Prior Transfusion(s) Intubation History: Unknown - Review of Systems General: No Symptoms Pulmonary: No Symptoms Cardiovascular: No Symptoms Gastrointestinal: No Symptoms Neurological: No Symptoms Other: Reports: None - Physical Assessment NPO Status Date: 08/22/20 NPO Status Time: 00:00 Vital Signs: Last Vital Signs Temp 97.5 F 08/22/20 07:13 Pulse 77 08/22/20 07:13 Resp 16 08/22/20 07:13 BP 156/68 H 08/22/20 07:13 Pulse Ox 98 08/22/20 07:13 Height: 5 ft 1 in Weight: 162 lb ASA Class: 3 Mental Status: Alert & Oriented x3 Airway Class: Mallampati = 2 Dentition: Reports: Normal Dentition Thyro-Mental Finger Breadths: 3 Mouth Opening Finger Breadths: 3 ROM/Head Extension: Full Lungs: Clear to Auscultation, Normal Respiratory Effort Cardiovascular: Regular Rate, Regular Rhythm - Lab Values: Laboratory Last Values POC Glucose 143 mg/dL (70-99) H 08/22/20 07:11 - Allergies Allergies/Adverse Reactions: Allergies Allergy/AdvReac Type Severity Reaction Status Date / Time No Known Allergies Allergy Verified 08/19/20 10:00 PreAnesthesia Questionnaire HEENT History: Reports: Other (See Below) Other HEENT History: wears glasses Cardiovascular History: Reports: Hypertension Respiratory History: Reports: PE Other Respiratory History: bilateral PE after Lap Rosa Gastrointestinal History: Reports: None Genitourinary History: Reports: None YARD ATTENDANT History: Reports: None Musculoskeletal History: Reports: Back Pain, Chronic Neurological History: Reports: None Psychiatric History: Reports: Anxiety, Depression Endocrine/Metabolic History: Reports: Diabetes, Type II, Obesity/BMI 30+ Hematologic History: Reports: None Immunologic History: Reports: None Oncologic (Cancer) History: Reports: Breast Dermatologic History: Reports: None - Infectious Disease History Infectious Disease History: Reports: Chicken Pox - Past Surgical History Head Surgeries/Procedures: Reports: None HEENT Surgical History: Reports: None Cardiovascular Surgical History: Reports: None Respiratory Surgical History: Reports: None GI Surgical History: Reports: Cholecystectomy, Hernia, Abdominal Other GI Surgeries/Procedures: Incisional Hernia repair Female Surgical History: Reports: Breast Biopsy, Tubal Ligation Other Female Surgeries/Procedures: breast Lumpectomy for cancer Endocrine Surgical History: Reports: None Neurological Surgical History: Reports: None Musculoskeletal Surgical History: Reports: Other (See Below) Other Musculoskeletal Surgeries/Procedures:: removal of bone spur right foot Oncologic Surgical History: Reports: Lumpectomy Other Oncologic Surgeries/Procedures: left breast- followed by radiation Dermatological Surgical History: Reports: None - SUBSTANCE USE Tobacco Use Status *Q: Never Tobacco User Recreational Drug Use History: No - HOME MEDS Home Medications: Home Meds Gabapentin [Neurontin] 300 mg PO TID 01/07/18 [History] Lisinopril 20 mg PO QAM 01/07/18 [History] Venlafaxine HCl [Venlafaxine HCl ER] 37.5 mg PO BID 01/12/18 [History] Lidocaine 5% [Lidoderm 5%] 1 patch TOP ASDIRECTED PRN 01/26/18 [History] Meloxicam 15 mg PO BEDTIME 06/29/19 [History] metFORMIN HCl [Metformin HCl] 1,000 mg PO BID #60 tablet 05/02/20 [Rx] Cyclobenzaprine HCl 5 mg PO TID PRN 08/19/20 [History] oxyCODONE HCl/Acetaminophen [Percocet 5-325 mg Tablet] 1 - 2 tab PO Q4H PRN 08/19/20 [History] traMADol [Ultram] 50 mg PO BEDTIME 08/19/20 [History] - CURRENT (IN HOUSE) MEDS Current Meds: Current Medications Lactated Ringer's (Ringers, Lactated) 1,000 mls @ 125 mls/hr IV ASDIRECTED [facility] Last Admin: 08/22/20 07:18 Dose: 125 mls/hr Documented by: Sodium Chloride (Sodium Chloride 0.9% 2.5 Ml Syringe) 2.5 ml FLUSH ASDIRECTED PRN PRN Reason: Keep Vein Open Sodium Chloride (Sodium Chloride 0.9% 10 Ml Sdv) 10 ml IV ASDIRECTED PRN PRN Reason: IV Use Sodium Chloride (Sodium Chloride 0.9% 10 Ml Syringe) 10 ml FLUSH ASDIRECTED PRN PRN Reason: Keep Vein Open Discontinued Medications Fentanyl (Fentanyl 100 Mcg/2 Ml Sdv) Confirm Administered Dose 100 mcg .ROUTE .STK-MED ONE Stop: 08/22/20 07:21 Glycopyrrolate (Glycopyrrolate 0.2 Mg/Ml Sdv) Confirm Administered Dose 0.2 mg .ROUTE .STK-MED ONE Stop: 08/22/20 07:21 Cefazolin Sodium/Dextrose 2 gm (/ Premix) 50 mls @ 100 mls/hr IV ONETIME ONE Stop: 08/21/20 09:25 Ketorolac Tromethamine (Ketorolac 30 Mg/Ml Sdv) Confirm Administered Dose 30 mg .ROUTE .STK-MED ONE Stop: 08/22/20 07:21 Lidocaine (Lidocaine 2% 5 Ml Sdv) Confirm Administered Dose 5 ml .ROUTE .STK-MED ONE Stop: 08/22/20 07:21 Lidocaine HCl (Lidocaine 1% 20 Ml Mdv) Confirm Administered Dose 20 ml .ROUTE .STK-MED ONE Stop: 08/22/20 07:23 Midazolam HCl (Midazolam 1 Mg/Ml 2 Ml Sdv) Confirm Administered Dose 2 mg .ROUTE .STK-MED ONE Stop: 08/22/20 07:21 Ondansetron HCl (Ondansetron 4 Mg/2 Ml Sdv) Confirm Administered Dose 4 mg .ROUTE .STK-MED ONE Stop: 08/22/20 07:21 Propofol (Propofol 200 Mg/20 Ml Sdv) Confirm Administered Dose 200 mg .ROUTE .STK-MED ONE Stop: 08/22/20 07:21 Scopolamine (Scopolamine 1.5 Mg Transdermal Patch) Confirm Administered Dose 1.5 mg .ROUTE .STK-MED ONE Stop: 08/22/20 07:08
[2020-08-22] MEDS ORDERED: Ondansetron 4 MG/2 ML SDV IVPUSH PRN (07:33)
[2020-08-22] MEDS ORDERED: Naloxone 0.4 MG/ML Syringe IVPUSH PRN (07:33)
[2020-08-22] MEDS ORDERED: Morphine 2 MG/ML SYRINGE IVPUSH PRN (07:33)
[2020-08-22] MEDS ORDERED: fentaNYL 100 MCG/2 ML SDV IVPUSH PRN (07:33)
[2020-08-22] MEDS ORDERED: Albuterol 0.083% 2.5 MG/3 ML Neb Soln NEB PRN (07:33)
[2020-08-22] MEDS ORDERED: Metoclopramide 10 MG/2 ML SDV IVPUSH PRN (07:33)
[2020-08-22] MEDS ORDERED: HYDROmorphone 2 MG/ML Syringe IVPUSH PRN (07:33)
[2020-08-22] MEDS ORDERED: ceFAZolin 1 GM Vial ONE (07:34)
[2020-08-22] MEDS ORDERED: Sodium Chloride 0.9% 20 ML ONE (07:34)
[2020-08-22] MEDS ORDERED: Octyl 2-Cyanoacrylate 1 Tube ONE (08:25)
--- NOTE | 2020-08-22 08:46 | PCM.OPNOTE ---
- General Post-Op/Procedure Note Date of Surgery/Procedure: 08/22/20 Operative Procedure(s): Excision right chest wall mass Findings: Excision of multilobulated lipoma on right chest wall measuring 5 x 3.5 x 0.6cm. No margins Pre Op Diagnosis: Lipoma of chest wall Post-Op Diagnosis: same Anesthesia Technique: General LMA, Local Primary Surgeon: Suypaa Gonzales Condition: Good
--- NOTE | 2020-08-22 09:20 | PCM.POSTAN ---
POST ANESTHESIA ASSESSMENT - MENTAL STATUS Mental Status: Alert, Oriented - VITAL SIGNS Vital Signs: Last Vital Signs Temp 97.5 F 08/22/20 08:55 Pulse 67 08/22/20 08:55 Resp 14 08/22/20 08:55 BP 147/82 H 08/22/20 08:55 Pulse Ox 96 08/22/20 08:55 - RESPIRATORY Respiratory Status: Respiratory Rate WNL, Airway Patent, O2 Saturation Stable - CARDIOVASCULAR CV Status: Pulse Rate WNL, Blood Pressure Stable - GASTROINTESTINAL GI Status: No Symptoms - POST OP HYDRATION Hydration Status: Adequate & Stable
--- NOTE | 2020-08-22 09:21 | PCM48HPAN ---
Post Anesthesia Note - EVALUATION WITHIN 48HRS OF ANESTHETIC Vital Signs in Normal Range: Yes Patient Participated in Evaluation: Yes Respiratory Function Stable: Yes Airway Patent: Yes Cardiovascular Function Stable: Yes Hydration Status Stable: Yes Pain Control Satisfactory: Yes Nausea and Vomiting Control Satisfactory: Yes Mental Status Recovered: Yes Vital Signs: Last Vital Signs Temp 97.5 F 08/22/20 08:55 Pulse 67 08/22/20 08:55 Resp 14 08/22/20 08:55 BP 147/82 H 08/22/20 08:55 Pulse Ox 96 08/22/20 08:55
--- NOTE | 2020-08-22 14:50 | OR ---
SURGEON: SUYAPA GONZALES MD DATE OF PROCEDURE: 08/22/2020 PREOPERATIVE DIAGNOSIS: Right chest wall lipoma. POSTOPERATIVE DIAGNOSIS: Right chest wall lipoma. PROCEDURE PERFORMED: Excision of right chest wall lipoma. PRIMARY SURGEON: Suyapa Gonzales MD ANESTHESIA: General LMA, local. FLUIDS: See Anesthesia record. ESTIMATED BLOOD LOSS: 2 mL. FINDINGS: 5 x 3.5 x 0.6 cm multilobulated lipoma. COMPLICATIONS: None. INDICATIONS: The patient is a 55-year-old female who presented to my clinic with complaints of a slowly enlarging mass along her right chest wall/right upper quadrant. On physical exam, the patient had a subcutaneous mass consistent with that of a lipoma. I explained the need for an excision. We discussed the procedure, expected perioperative course, and the risks. She verbalized understanding and wishes to proceed. PROCEDURE IN DETAIL: The patient was brought in to the OR and placed on the OR table in supine position. A time-out was completed verifying the patient's name, age, date of , allergies, and procedure to be performed. General LMA anesthesia was induced. The patient was then placed in a left lateral decubitus position, taking care to appropriately pad and secure the patient to the table. The right chest wall and abdomen were then prepped and draped in usual standard fashion. I anesthetized the area overlying the mass with 0.5% Marcaine plain. A 15-blade was used to make an incision over the top of this mass along the skin lines. The incision measured 5.5 cm. Using electrocautery, I dissected down to the mass. I encountered a multilobulated encapsulated structure consistent with that of a lipoma. Using blunt dissection and electrocautery, I dissected it free from the surrounding normal-appearing subcutaneous fat. Once the mass was removed from the surrounding structures, it was placed on the back table. It was measured. It measured 5 cm x 3.5 cm x 0.6 cm in size. It was sent to Pathology, labeled as right chest wall/abdomen mass. Electrocautery was used to achieve hemostasis within the wound bed. The wound bed was irrigated. It was then closed with interrupted layers of 3-0 Vicryl sutures. In the superficial fat layer, I used a running 3-0 Vicryl stitch. To close the skin, I used a running for 4-0 Monocryl suture. Dermabond and sterile dressings were applied. The patient tolerated the procedure well and was transferred to the PACU in stable condition. All counts were complete and correct at the end of the case. VU PATIÑO /[id number]
== END 2020-08-22 10:05 | disposition home or self-care (01) ==
LOC: MW.SDS 06:53
PROVIDERS: ATTEND Surgery
DX: D17.1 Benign lipomatous neoplasm of skin and subcutaneous tissue of trunk (principal); E78.5 Hyperlipidemia, unspecified; I10 Essential (primary) hypertension; E11.9 Type 2 diabetes mellitus without complications; E66.9 Obesity, unspecified; Z68.30 Body mass index [BMI] 30.0-30.9, adult; Z79.84 Long term (current) use of oral hypoglycemic drugs; Z79.899 Other long term (current) drug therapy; Z98.890 Other specified postprocedural states
CPT/HCPCS: 11406; 82947; 88304; A9270; J0690; J1885; J2250; J2370; J2704; J3490; J7120; 00400; J2405; J3010

== ENCOUNTER 2020-09-28 11:33 | Emergency (ER) | payer MEDICARE, OTHER ==
[2020-09-28] MEDS ORDERED: Sodium Chloride 0.9% 1,000 ML IV ONE (11:48)
[2020-09-28] MEDS ORDERED: Ondansetron 4 MG/2 ML SDV IVPUSH ONE (11:52)
--- NOTE | 2020-09-28 11:55 | PCM.EKG ---
#1 Interpretation Time: 11:55 EKG Interpretation Comments: 65, normal sinus rhythm, nonspecific ST/T findings
[2020-09-28] MEDS: Labetalol 100 MG/20 ML MDV IVPUSH ONE ×2 (12:16→13:04)
[2020-09-28 12:34] LABS: BLOOD UREA NITROGEN,BUN 17 mg/dL (7.0-18.0); CARBON DIOXIDE,CO2 27.1 mmol/L (21.0-32.0); CHLORIDE,CL 100 mmol/L (98-107); GLUCOSE RANDOM 157 mg/dL (74-106); POTASSIUM,K 3.3 mmol/L (3.5-5.1); SODIUM,NA 138 mmol/L (136-145)
--- NOTE | 2020-09-28 12:41 | CR ---
INDICATION: Dizzy TECHNIQUE: Two view chest. FINDINGS: The lungs are clear. The heart, mediastinum and pulmonary vessels are of normal size. There is no evidence of pleural disease. Left basilar atelectasis. IMPRESSION: Negative chest. Dictated by Rylie Parker MD @ 09/28/2020 12:40:[address] Rylie Parker @ Sep 28 2020 12:40PM
--- NOTE | 2020-09-28 12:44 | CT ---
Indication: Dizzy Technique: Noncontrast head CT Comparison: No comparison Findings: Axial noncontrast images demonstrates no acute intracranial hemorrhage or mass. No midline shift. No abnormal extra-axial air or fluid collections are seen. Paranasal sinuses mastoid air cells skull and scalp appear unremarkable. Impression: No acute intracranial hemorrhage or mass. Please note that all CT scans at this facility use dose modulation, iterative reconstruction, and/or weight-based dosing when appropriate to reduce radiation dose to as low as reasonably achievable. Dictated by Rylie Parker MD @ 09/28/2020 12:42:[address] Rylie Parker @ Sep 28 2020 12:42PM
[2020-09-28] MEDS ORDERED: Iopamidol 755 MG/ML 500 ML Multipack Bottle IVPUSH ONE (13:53)
--- NOTE | 2020-09-28 14:07 | CT ---
DATE: 09/28/2020 CLINICAL HISTORY: Patient with severe headache and neck pain. TECHNIQUE: Standard helical CT image acquisition through the head and neck was performed after intravenous contrast bolus enhancement. Multiplanar reconstructed images were performed and interpreted. COMPARISON: CT same day. FINDINGS: The origins of the great vessels from the aortic arch are patent. The origin of the right vertebral artery is patent. The origin of the left vertebral artery is patent. The common carotid arteries are patent There is no stenosis at the origin of the right internal carotid artery. There is no stenosis at the origin of the left internal carotid artery. The rest of the cervical segments of the internal carotid arteries are patent up to their intracranial segments. The intracranial segments of the internal carotid arteries are patent. The vertebral arteries are codominant. The cervical segments of the vertebral arteries are patent. The intracranial segments of the vertebral arteries are patent. The middle cerebral arteries are normal without aneurysm or proximal occlusion identified. The anterior cerebral arteries are normal without aneurysm or proximal occlusion identified. The anterior communicating artery is well visualized and appears normal. The basilar artery is normal without aneurysm or occlusion. The posterior cerebral arteries are normal without aneurysm or proximal occlusion. There is normal opacification of major intracranial venous structures. The visualized lung apices are unremarkable The thyroid gland is unremarkable. The soft tissues of the neck are unremarkable. There are degenerative changes in the cervical spine. IMPRESSION: Normal CT angiogram of the head and neck. Please note that all CT scans at this facility use dose modulation, iterative reconstruction, and/or weight-based dosing when appropriate to reduce radiation dose to as low as reasonably achievable. Dictated by Otis Miller MD @ 09/28/2020 3:24:[address] Otis Miller @ Sep 28 2020 3:24PM
--- NOTE | 2020-09-28 14:09 | CT ---
DATE: 09/28/2020 CLINICAL HISTORY: Patient with severe headache and neck pain. TECHNIQUE: Standard helical CT image acquisition through the head and neck was performed after intravenous contrast bolus enhancement. Multiplanar reconstructed images were performed and interpreted. COMPARISON: CT same day. FINDINGS: The origins of the great vessels from the aortic arch are patent. The origin of the right vertebral artery is patent. The origin of the left vertebral artery is patent. The common carotid arteries are patent There is no stenosis at the origin of the right internal carotid artery. There is no stenosis at the origin of the left internal carotid artery. The rest of the cervical segments of the internal carotid arteries are patent up to their intracranial segments. The intracranial segments of the internal carotid arteries are patent. The vertebral arteries are codominant. The cervical segments of the vertebral arteries are patent. The intracranial segments of the vertebral arteries are patent. The middle cerebral arteries are normal without aneurysm or proximal occlusion identified. The anterior cerebral arteries are normal without aneurysm or proximal occlusion identified. The anterior communicating artery is well visualized and appears normal. The basilar artery is normal without aneurysm or occlusion. The posterior cerebral arteries are normal without aneurysm or proximal occlusion. There is normal opacification of major intracranial venous structures. The visualized lung apices are unremarkable The thyroid gland demonstrates an 11mm hypodense nodule in its left lobe. The soft tissues of the neck are unremarkable. There are degenerative changes in the cervical spine. IMPRESSION: 1. Normal CT angiogram of the head and neck. 2. 11mm hypodense left thyroid nodule. This could be better assessed with ultrasound. Please note that all CT scans at this facility use dose modulation, iterative reconstruction, and/or weight-based dosing when appropriate to reduce radiation dose to as low as reasonably achievable. Dictated by Otis Miller MD @ 09/28/2020 3:26:[address] Otis Miller @ Sep 28 2020 3:26PM
[2020-09-28] MEDS ORDERED: Labetalol 100 MG/20 ML MDV IVPUSH ONE (14:30)
--- NOTE | 2020-09-28 15:08 | EDM.PDOC ---
ED HPI GENERAL MEDICAL PROBLEM - General Chief Complaint: Headache Stated Complaint: HIGH BP HIGH BLOOD SUGAR Time Seen by Provider: 09/28/20 11:36 Source of Information: Reports: Patient History Limitations: Reports: No Limitations - History of Present Illness INITIAL COMMENTS - FREE TEXT/NARRATIVE: HISTORY AND PHYSICAL: History of present illness: Patient is a 55-year-old female, with a history of migraine disorder, hypertension, type 2 diabetes, who presents emergency room today with concern of headache that she thinks is related to her blood pressure. Patient states that she has had to go to the hospital a few times with concern of her blood pressure causing headaches in the past. Patient states today that her headache is worse than it has ever been and states that it was sudden onset when she woke up. Patient states she checked her blood pressure at home and it was 200s over 120s and states that her blood pressure is typically not this high. Patient states that her sugars have also been "higher than usual "but states that she did not check it today. Patient denies any head injury or loss of consciousness. Patient states that she has vomited twice since the onset of her headache this morning and did stay the headache came on quickly. Patient states that this is unlike her migraine headaches. Patient states the headache is similar to her past hypertensive episodes but states that this 1 is worse. Patient denies any visual changes or any other resuscitative symptoms. Patient denies fever, chills, chest pain, shortness of breath, or cough. Denies, neck stiff ness, change in vision, syncope, or near syncope. Denies abdominal pain, diarrhea, constipation, or dysuria. Has not noted any blood in urine or stool. Patient has been eating and drinking appropriately. Review of systems: As per history of present illness and below otherwise all systems reviewed and negative. Past medical history: As per history of present illness and as reviewed below otherwise noncontributory. Surgical history: As per history of present illness and as reviewed below otherwise noncontributory. Social history: See social history for further information Family history: As per history of present illness and as reviewed below otherwise noncontributory. Physical exam: General: Patient is alert, oriented, and in no acute distress. Patient laying on exam table, holding her head in her hands and tearful on exam. Hypertensive 205/117, increased respiratory rate 26, otherwise vitally stable and reviewed by me. HEENT: Atraumatic, normocephalic, pupils equal and reactive bilaterally, negative for conjunctival pallor or scleral icterus, mucous membranes moist, TMs normal bilaterally, throat clear, neck supple, nontender, trachea midline. No drooling or trismus noted. No meningeal signs. No hot potato voice noted. Lungs: Clear to auscultation, breath sounds equal bilaterally, chest nontender. Heart: S1S2, regular rate and rhythm without overt murmur Abdomen: Soft, nondistended, nontender. Negative for masses or hepatosplenomegaly. Negative for costovertebral tenderness. Pelvis: Stable nontender. Genitourinary: Deferred. Rectal: Deferred. Skin: Intact, warm, dry. No lesions or rashes noted. Extremities: Atraumatic, negative for cords or calf pain. Neurovascular unremarkable. Neuro: Awake, alert, oriented. Cranial nerves II through XII unremarkable. Cerebellum unremarkable. Motor and sensory unremarkable throughout. Exam nonfocal. Notes: Patient is a 55-year-old female who presents emergency room today secondary to sudden onset "worst headache of her life "that began this morning when she woke up with associated nausea and 2 episodes of nonbilious nonbloody vomiting. Upon arrival to the ED, patient is noted to be hypertensive 205/117. Patient does note a prior history of symptomatic hypertension and states she took her blood pressure medication today about an hour before coming to the emergency room. Further on exam, patient is holding her head and tearful on exam but is not actively vomiting and no focal neural deficits. Will obtain cardiac evaluation, provide a dose of 10 mg IV labetalol for possible symptomatic hypertension, and obtain a head CT without contrast. Prior to giving IV labetalol, patient's blood pressure has come down on its own to 160/80. Patient has improvement of her respiratory rate of about 18. Patient states that her headache is still the worst that it has ever been despite her blood pressure now being lowered. See Dr. Roberts's dictation for specific EKG interpretation. However, normal sinus rhythm without STEMI. CBC mild derangements are unremarkable. CMP notes a mild hypokalemia of 3.3, glucose mildly elevated at 157, patient's AST and ALT are elevated at 51 and 88 respectively with mild elevation of alk phos at 120. Total bilirubin is within normal limits. Troponin is negative. Urinalysis is clear of infection with noted 100 protein with no red blood cells. Chest x-ray is unremarkable. Head CT without contrast shows no acute intracranial hemorrhage or mass. Upon reevaluation of patient, she continues to have headache. I did discuss possible SAH and lumbar puncture was offered to patient for diagnosis. However, patient opts to receive an angio head and neck. All risks and benefits of lumbar puncture versus angio head and neck discussed with patient and opts to have angio head and neck CT. Angio head and neck CT is normal CT angiogram of the head and neck. Upon reevaluation of patient, she expresses complete resolution of her headache with fluids and Zofran today in the emergency room. Patient did start to have an increase of her blood pressure of 198/105 and labetalol 10 mg was given at that time. I did offer admission for observation for possible symptomatic hypertension, however, patient declines requesting to leave the emergency room. Strict return precautions thoroughly discussed with patient. Discussed importance for follow-up with a primary care provider and for closer blood pressure monitoring. Also discussed importance for follow-up with mild derangements of lab work today with her primary care provider. Voices understanding and is agreeable to plan of care. Denies any further questions or concerns at this time. Diagnostics: EKG, CBC, CMP, UA, chest x-ray, troponin, head CT without contrast, angio head and neck Therapeutics: Normal saline, Zofran, labetalol Prescription: None Impression: Headache, unspecified Hypertension, uncontrolled Transaminitis, unspecified, mild Plan: 1. Encourage small but frequent sips of fluid to prevent dehydration. You can alternate ibuprofen and Tylenol as directed for pain and discomfort. 2. Follow-up with your primary care provider for close blood pressure monitoring/treatment as discussed. I encourage you to keep a journal log and check your blood pressure twice daily and bring this with you to your primary care appointment. 3. Return to the emergency room as needed and as discussed. Definitive disposition and diagnosis as appropriate pending reevaluation and review of above. Head Pain Score (Numeric/FACES): 10 - Related Data Allergies Allergy/AdvReac Type Severity Reaction Status Date / Time No Known Allergies Allergy Verified 09/18/20 07:37 Home Meds: Home Meds Gabapentin [Neurontin] 300 mg PO TID 01/07/18 [History] Lisinopril 20 mg PO QAM 01/07/18 [History] Venlafaxine HCl [Venlafaxine HCl ER] 37.5 mg PO BID 01/12/18 [History] Lidocaine 5% [Lidoderm 5%] 1 patch TOP ASDIRECTED PRN 01/26/18 [History] Meloxicam 15 mg PO BEDTIME 06/29/19 [History] metFORMIN HCl [Metformin HCl] 1,000 mg PO BID #60 tablet 05/02/20 [Rx] Cyclobenzaprine HCl 5 mg PO TID PRN 08/19/20 [History] oxyCODONE HCl/Acetaminophen [Percocet 5-325 mg Tablet] 1 - 2 tab PO Q4H PRN 08/19/20 [History] traMADol [Ultram] 50 mg PO BEDTIME 08/19/20 [History] Past Medical History - Past Health History Medical/Surgical History: Denies Medical/Surgical History HEENT History: Reports: Other (See Below) Other HEENT History: wears glasses Cardiovascular History: Reports: Hypertension Respiratory History: Reports: PE Other Respiratory History: bilateral PE after Lap [place] Gastrointestinal History: Reports: None Genitourinary History: Reports: None FORGING PRESS SETTER UP History: Reports: None Other FORGING PRESS SETTER UP History: Lymphoma Musculoskeletal History: Reports: Back Pain, Chronic Neurological History: Reports: None Psychiatric History: Reports: Anxiety, Depression Endocrine/Metabolic History: Reports: Diabetes, Type II, Obesity/BMI 30+ Hematologic History: Reports: None Immunologic History: Reports: None Oncologic (Cancer) History: Reports: Breast Dermatologic History: Reports: None - Infectious Disease History Infectious Disease History: Reports: Chicken Pox - Past Surgical History Head Surgeries/Procedures: Reports: None HEENT Surgical History: Reports: None Cardiovascular Surgical History: Reports: None Respiratory Surgical History: Reports: None GI Surgical History: Reports: Cholecystectomy, Hernia, Abdominal Other GI Surgeries/Procedures: Incisional Hernia repair Female Surgical History: Reports: Breast Biopsy, Tubal Ligation Other Female Surgeries/Procedures: breast Lumpectomy for cancer Endocrine Surgical History: Reports: None Neurological Surgical History: Reports: None Musculoskeletal Surgical History: Reports: Other (See Below) Other Musculoskeletal Surgeries/Procedures:: removal of bone spur right foot Oncologic Surgical History: Reports: Lumpectomy Other Oncologic Surgeries/Procedures: left breast- followed by radiation Dermatological Surgical History: Reports: None Social & Family History - Family History Family Medical History: No Pertinent Family History Cardiac: Reports: Other (See Below) Other Cardiac Family History: on maternal side Respiratory: Reports: None - Tobacco Use Tobacco Use Status *Q: Never Tobacco User Second Hand Smoke Exposure: No - Caffeine Use Caffeine Use: Reports: None - Recreational Drug Use Recreational Drug Use: No ED ROS GENERAL - Review of Systems Review Of Systems: Comprehensive ROS is negative, except as noted in HPI. ED EXAM, GENERAL - Physical Exam Exam: See Below (See dictation) Course - Vital Signs Last Recorded V/S: Last Vital Signs Temp 97.4 F 09/28/20 15:18 Pulse 61 09/28/20 15:18 Resp 18 09/28/20 15:18 BP 189/102 H 09/28/20 15:18 Pulse Ox 98 09/28/20 15:18 - Orders/Labs/Meds Labs: Laboratory Tests 09/28/20 09/28/20 09/28/20 Range/Units 11:40 11:40 13:55 WBC 8.22 (4.0-11.0) K/uL RBC 5.19 (4.30-5.90) M/uL Hgb 15.2 (12.0-16.0) g/dL Hct 43.8 (36.0-46.0) % MCV 84.4 (80.0-98.0) fL MCH 29.3 (27.0-32.0) pg MCHC 34.7 (31.0-37.0) g/dL RDW Std Deviation 40.4 (28.0-62.0) fl RDW Coeff of Joel 13 (11.0-15.0) % Plt Count 245 (150-400) K/uL MPV 13.50 H (7.40-12.00) fL Neut % (Auto) 61.0 (48.0-80.0) % Lymph % (Auto) 30.4 (16.0-40.0) % [place] % (Auto) 6.0 (0.0-15.0) % Eos % (Auto) 2.2 (0.0-7.0) % Baso % (Auto) 0.4 (0.0-1.5) % Neut # (Auto) 5.0 (1.4-5.7) K/uL Lymph # (Auto) 2.5 H (0.6-2.4) K/uL [place] # (Auto) 0.5 (0.0-0.8) K/uL Eos # (Auto) 0.2 (0.0-0.7) K/uL Baso # (Auto) 0.0 (0.0-0.1) K/uL Nucleated RBC % 0.0 /100WBC Nucleated RBCs # 0 K/uL Sodium 138 (136-145) mmol/L Potassium 3.3 L (3.5-5.1) mmol/L Chloride 100 (98-107) mmol/L Carbon Dioxide 27.1 (21.0-32.0) mmol/L BUN 17 (7.0-18.0) mg/dL Creatinine 0.9 (0.6-1.0) mg/dL Est Cr Clr Drug Dosing 56.52 mL/min Estimated GFR (MDRD) > 60.0 ml/min Glucose 157 H (74-106) mg/dL Calcium 9.7 (8.5-10.1) mg/dL Total Bilirubin 0.6 (0.2-1.0) mg/dL AST 51 H (15-37) IU/L ALT 88 H (14-63) IU/L Alkaline Phosphatase 120 H (46-116) U/L Troponin I < 0.050 (0.000-0.056) ng/mL Total Protein 8.4 H (6.4-8.2) g/dL Albumin 4.5 (3.4-5.0) g/dL Globulin 3.9 (2.6-4.0) g/dL Albumin/Globulin Ratio 1.2 (0.9-1.6) Urine Color YELLOW Urine Appearance CLEAR Urine pH 7.0 (5.0-8.0) Ur Specific [place] 1.010 (1.001-1.035) Urine Protein 100 H (NEGATIVE) mg/dL Urine Glucose (UA) NEGATIVE (NEGATIVE) mg/dL Urine Ketones NEGATIVE (NEGATIVE) mg/dL Urine Occult Blood TRACE-INTACT H (NEGATIVE) Urine Nitrite NEGATIVE (NEGATIVE) Urine Bilirubin NEGATIVE (NEGATIVE) Urine Urobilinogen 0.2 (<2.0) EU/dL Ur Leukocyte Esterase NEGATIVE (NEGATIVE) Urine RBC 0-2 (0-2/HPF) Urine WBC 0-1 (0-5/HPF) Ur Epithelial Cells OCCASIONAL (NONE-FEW) Urine Bacteria RARE (NEGATIVE) Meds: Medications Discontinued Medications Generic Name Dose Route Start Last Admin Trade Name Cirilo PRN Reason Stop Dose Admin Sodium Chloride 1,000 mls @ 999 mls/hr 09/28/20 11:48 09/28/20 11:55 Normal Saline IV 09/28/20 12:48 999 mls/hr BOLUS ONE Administration Iopamidol 100 ml 09/28/20 13:53 09/28/20 13:53 Iopamidol 755 Mg/Ml 500 Ml Multipack Bottle IVPUSH 09/28/20 13:54 100 ml ONETIME ONE Administration Labetalol HCl 10 mg 09/28/20 11:56 09/28/20 13:04 Labetalol 100 Mg/20 Ml Mdv IVPUSH 09/28/20 11:57 Not Given ONETIME ONE Protocol Labetalol HCl 10 mg 09/28/20 14:30 09/28/20 14:34 Labetalol 100 Mg/20 Ml Mdv IVPUSH 09/28/20 14:31 10 mg ONETIME ONE Administration Protocol Ondansetron HCl 4 mg 09/28/20 11:52 09/28/20 12:16 Ondansetron 4 Mg/2 Ml Sdv IVPUSH 09/28/20 11:53 4 mg ONETIME ONE Administration Departure - Departure Time of Disposition: 15:07 Disposition: Home, Self-Care 01 Clinical Impression: Transaminitis Hypertension Qualifiers: Hypertension type: unspecified Qualified Code(s): I10 - Essential (primary) hypertension Headache Qualifiers: Headache chronicity pattern: acute headache Intractability: not intractable - Discharge Information Instructions: How to Take Your Blood Pressure, [id number], Hypertension, Adult, [id number], General Headache Without Cause, [id number] Referrals: PCP,None [Primary Care Provider] - Forms: ED Department Discharge Additional Instructions: The following information is given to patients seen in the emergency department who are being discharged to home. This information is to outline your options for follow-up care. We provide all patients seen in our emergency department with a follow-up referral. The need for follow-up, as well as the timing and circumstances, are variable depending upon the specifics of your emergency department visit. If you don't have a primary care physician on staff, we will provide you with a referral. We always advise you to contact your personal physician following an emergency department visit to inform them of the circumstance of the visit and for follow-up with them and/or the need for any referrals to a consulting specialist. The emergency department will also refer you to a specialist when appropriate. This referral assures that you have the opportunity for follow-up care with a specialist. All of these measure are taken in an effort to provide you with optimal care, which includes your follow-up. Under all circumstances we always encourage you to contact your private physician who remains a resource for coordinating your care. When calling for follow-up care, please make the office aware that this follow-up is from your recent emergency room visit. If for any reason you are refused follow-up, please contact the [facility] Emergency Department at and asked to speak to the emergency department charge nurse. [facility] [address] [place] [id number] [facility] [address] [place] [address] 1. Encourage small but frequent sips of fluid to prevent dehydration. You can alternate ibuprofen and Tylenol as directed for pain and discomfort. 2. Follow-up with your primary care provider for close blood pressure monitoring/treatment as discussed. I encourage you to keep a journal log and check your blood pressure twice daily and bring this with you to your primary care appointment. 3. Return to the emergency room as needed and as discussed. Sepsis Event Note (ED) - Evaluation Sepsis Screening Result: No Definite Risk
== END 2020-09-28 15:28 | disposition home or self-care (01) ==
LOC: MW.ED 11:33
DX: R51.9 Headache, unspecified (principal); I10 Essential (primary) hypertension; R74.01 Elevation of levels of liver transaminase levels; E11.9 Type 2 diabetes mellitus without complications; E66.9 Obesity, unspecified; Z68.29 Body mass index [BMI] 29.0-29.9, adult; Z79.899 Other long term (current) drug therapy; Z79.84 Long term (current) use of oral hypoglycemic drugs
CPT/HCPCS: 70450; 70496; 70498; 71045; 80053; 81001; 82947; 84484; 85025; 93005; 96374; 96375; 99284; J2405; J3490; J7030; Q9967; 93010

== ENCOUNTER 2022-03-22 23:06 | Emergency (ER) | payer MEDICARE, OTHER ==
[2022-03-23] MEDS ORDERED: Ketorolac 30 MG/ML SDV IM STA (00:01)
== END 2022-03-23 01:12 | disposition home or self-care (01) ==
LOC: MW.ED 23:06
DX: S63.610A Unspecified sprain of right index finger, initial encounter (principal); I10 Essential (primary) hypertension; E11.9 Type 2 diabetes mellitus without complications; E66.9 Obesity, unspecified; Z79.84 Long term (current) use of oral hypoglycemic drugs; Z79.899 Other long term (current) drug therapy; W23.0XXA Caught, crushed, jammed, or pinched between moving objects, initial encounter
CPT/HCPCS: 29130; 73110; 73130; 96372; 99283; J1885; 99282